=== PATIENT | female | born 1990 | race African-American/Black ===

== ENCOUNTER 2017-07-06 11:02 | Emergency (ER) | payer MEDICAID, OTHER ==
[2017-07-06 11:05] VITALS: BP 140/62; PULSE 98; RESP 16; TEMP 98.2; O2SAT 99
[2017-07-06] MEDS ORDERED: PREN28TA2 PO (11:16)
[2017-07-06 11:17] LABS: BILIRUBIN, URINE NEG (NEG); BLOOD, URINE NEG (NEG); GLUCOSE,URINE NEG (NEG); KETONE, URINE NEG (NEG); NITRITE,URINE NEG (NEG); URINE COLOR STRAW (YELLW/STRAW); URINE LEUKOCYTE ESTERASE MOD (NEG)
[2017-07-06 11:26] LABS: AMORPHOUS SEDIMENT, URINE MOD; BACTERIA, URINE FEW /hpf; WHITE BLOOD CELL CLUMPS FEW
[2017-07-06] MEDS ORDERED: MACR100C2 PO (11:37)
[2017-07-06] MEDS ORDERED: PHEN0.4T PO (11:37)
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
== END 2017-07-06 11:40 | disposition home or self-care (01) ==
LOC: PHEFT 11:02
DX: N30.00 Acute cystitis without hematuria (principal)
CPT/HCPCS: 81001; 84703; 87086; 99283

== ENCOUNTER 2017-09-05 09:28 | Emergency (ER) | payer OTHER ==
[~2017-09-05] VITALS: Ht 172.7 cm; Wt 94.0 kg
[~2017-09-05 09:28] MED LIST: MACR100C2 PO; PHEN0.4T PO; PREN28TA2 PO
[2017-09-05 09:30] VITALS: BP 143/75; PULSE 105; RESP 16; TEMP 99; O2SAT 99
[2017-09-05 09:58] LABS: BILIRUBIN, URINE NEG (NEG); BLOOD, URINE NEG (NEG); GLUCOSE,URINE NEG (NEG); KETONE, URINE NEG (NEG); NITRITE,URINE NEG (NEG); PH, URINE 5.5 (5.0-8.5); URINE COLOR YELLOW (YELLW/STRAW); URINE LEUKOCYTE ESTERASE NEG (NEG)
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
[2017-09-05] MEDS ORDERED: CLOT1CRE23 VAGINAL (10:08)
[2017-09-05 10:10] LABS: SQUAMOUS EPITHELIAL CELL URINE 0-5 /hpf (0-5); WBC, URINE 0-2 /hpf (0-5)
== END 2017-09-05 10:24 | disposition home or self-care (01) ==
LOC: PHEFT 09:28
DX: N76.0 Acute vaginitis (principal)
CPT/HCPCS: 81001; 84703; 87210; 87491; 87591; 99283